=== PATIENT | male | born 1950 | race Caucasian/White ===

== ENCOUNTER 2016-04-29 06:46 | Emergency (ER) | payer OTHER ==
[2016-04-29 06:53] VITALS: BP 118/50
--- NOTE | 2016-04-29 07:10 | ERNOTE ---
Medical Problem HPI - General Chief Complaint: General Assessment Time Seen by Provider: 04/29/16 06:59 Source: patient Exam Limitations: no limitations - Immun/Allergies/Home Medications Immunizations: IMMUNIZATION HX Immunizations Up to Date Yes Allergies/Adverse Reactions: Allergies No Known Allergies Allergy (Verified 04/29/16 06:53) Home Medications: HOME MEDICATIONS oxyCODONE HCL/ACETAMINOPHEN [Percocet 5 MG/325 MG] 2 tab PO Q4H PRN #30 tablet 01/28/16 [Last Taken Unknown] - History of Present History Narrative: PICC line not functioning Timing: constant Review of Systems - Review of Systems Constitutional: Present: recent illness - knee infection prompted PICC line placement for antibiotics EYE: Present: no symptoms reported ENT: Present: no symptoms reported Respiratory: Present: no symptoms reported Cardiology: Present: no symptoms reported Gastrointestinal/Abdominal: Present: no symptoms reported Genitourinary: Present: no symptoms reported Musculoskeletal: Present: joint pain - left knee Skin: Present: no symptoms reported Neurological: Present: no symptoms reported Endocrine: Present: no symptoms reported Hematologic/Lymphatic: Present: no symptoms reported Psych: Present: no symptoms reported - Patient's Past Medical History Patient History - Medical: Anemia, Arthritis, Other Patient History - Cardiac/Respiratory: No pertinent hx Patient History - Cancer: No Hx of Cancer Patient History - Surgical Procedures: Cataracts, Total Knee Replacement, Other - Family History Mother Family History - Medical: , Rheumatoid Arthritis Family History - Cardiac/Respiratory: No pertinent hx Father Family History - Medical: , No pertinent hx Family History - Cardiac/Respiratory: No pertinent hx - Social History Living Situations: spouse Does anyone smoke in the home?: No Smoking Status: Never smoker Have you smoked in the past 12 months: No Alcohol Use: none Drug Use: none Physical Exam - Physical Exam General Appearance: Present: wd/wn, alert, no apparent distress Ears, Nose, Throat: Present: normal ENT inspection, hearing grossly normal Neck: Present: normal inspection Respiratory: Present: no respiratory distress, no accessory muscle use Extremity Exam: Present: other - PICC line in right brachial vein, good condition no discharge or erythema Neurological Exam: Present: alert, oriented, normal mood/affect, no motor/ sensory deficits Skin Exam: Present: normal color, warm/dry Lymphatic Exam: Present: no adenopathy ED Progress - Vital Signs Vital Signs: Vital Signs 04/29/16 06:50 Pulse Rate 80 Respiratory 12 Rate Blood Pressure 118/50 O2 Sat by Pulse 99 Oximetry - Progress/Reassessment Chief Complaint: General Assessment Progress Note-Subjective: 04/29/16 07:07 PICC line was checked by RN and found that the family was not releasing the clamp before attempting to use the PICC line. Line was flushed an heparinized again. Departure - Departure Clinical Impression: Occluded PICC line Qualifiers: Encounter type: initial encounter Qualified Code(s): T82.898A - Other specified complication of vascular prosthetic devices, implants and grafts, initial encounter Disposition: Home self-care Condition: Good Referrals: Lisy Burgess MD [Primary Care Provider] -
== END 2016-04-29 07:04 | disposition home or self-care (01) ==
LOC: ER 06:46
DX: T82.898A Other specified complication of vascular prosthetic devices, implants and grafts, initial encounter (principal)